=== PATIENT | female | born 1990 | race Caucasian/White ===

== ENCOUNTER 2018-03-31 10:54 | Emergency (ER) | payer OTHER, SELFPAY ==
[2018-03-31 13:20] LABS: Urine Amorphous Sediment 1+ /HPF (NONE SEEN); Urine Bacteria 20-50 /HPF (<20); Urine Culture Reflex Order REFLEXED
[2018-03-31 13:21] LABS: Urine Blood 2+ (NEG); Urine Glucose NEGATIVE (NEG); Urine Protein NEGATIVE (NEG); Urine Specific Gravity >1.030 (1.005-1.030)
--- NOTE | 2018-03-31 14:05 | RAD REPORT ---
EXAM DESCRIPTION: CT - Stone Protocol - 03/31/2018 1:55 pm CLINICAL HISTORY: Flank pain. Flank pain;Hematuria COMPARISON: No comparisons TECHNIQUE: Axial images were obtained without oral or IV contrast. Lack of contrast limits solid org an and vascular assessment. The [id number] spans the entirety of the system partially obscuring uppermost abdomen and lung bases. Coronal reformatted images were obtained and reviewed. All CT scans are performed using dose optimization technique as appropriate and may include automated exposure control or mA/KV adjustment according to patient size. FINDINGS: The lower lung julian are clear. Imaged portions of the liver and spleen show no suspicious findings on non-contrast imaging. The panc reas and adrenal glands are normal. No pathologic lymphadenopathy in the abdomen or pelvis. No urinary tract stones or obstructive uropathy. No bowel obstruction, free air, free fluid or abscess. Normal appendix noted. No significant bony abnormality. IUD noted. IMPRESSION: No urinary tract stones or obstructive uropathy.
[2018-03-31 14:33] LABS: Absolute Lymphocytes (CBC) 2.5 K/uL (0.7-4.9); Absolute Monocytes 0.5 K/uL (0.1-1.3); Absolute Neutrophil 4.3 K/uL (1.8-8.0); Basophils % 0.9 % (0-1.3); Eosinophils % 2.2 % (0-4.4); Hematocrit 41.2 % (36.0-45.0); Lymphocytes % 33.4 % (15.3-44.8); MCH 31.4 pg (27.0-35.0); MCV 91.4 fL (80-100); MPV 8.6 fL (7.6-11.3); Monocytes % 6.2 % (3.3-12.3); RBC Red Blood Cell Count 4.51 M/uL (3.86-4.86)
[2018-03-31 14:39] LABS: Potassium 4.1 mmol/L (3.5-5.1)
[2018-03-31] MEDS ORDERED: NITROFURAN MACRO 100 MG CAP PO ONE (15:09)
--- NOTE | 2018-03-31 15:13 | EDPHYS ---
Physician Documentation [facility] Name: Krista Aguiar Age: 27 yrs Sex: Female : 1990 Arrival Date: 03/31/2018 Time: 10:58 Bed 23 Private MD: None, None ED Physician Adrienne Carpenter HPI: 03/31 13:53 This 27 yrs old Female presents to ER via Ambulatory with complaints of Back kb Pain. 13:53 The patient complains of pain in the right flank. The pain does not radiate. Onset: The kb symptoms/episode began/occurred 1 week(s) ago. Modifying factors: The symptoms are alleviated by nothing. the symptoms are aggravated by movement, palpation/percussion. Associated signs and symptoms: Pertinent positives: hematuria, Pertinent negatives: diarrhea, dizziness, dysuria, fever, urinary frequency, headache, hematuria, pain radiating to the lower extremities, vomiting. Severity of pain: At its worst the pain was moderate in the emergency department the pain is unchanged. The patient has not experienced similar symptoms in the past. The patient has not recently seen a physician. 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 - Social history:: Smoking status: Patient/guardian denies using tobacco, Patient/guardian denies using alcohol. - Ebola Screening: : Patient negative for fever greater than or equal to 101.5 degrees Fahrenheit, and additional compatible Ebola Virus Disease symptoms Patient denies exposure to infectious person Patient denies travel to an Ebola-affected area in the 21 days before illness onset. ROS: 13:52 Constitutional: Negative for fever, chills, and weight loss, Cardiovascular: Negative kb for chest pain, palpitations, and edema, Respiratory: Negative for shortness of breath, cough, wheezing, and pleuritic chest pain, Abdomen/GI: Negative for abdominal pain, nausea, vomiting, diarrhea, and constipation, MS/Extremity: Negative for injury and deformity, Skin: Negative for injury, rash, and discoloration, Neuro: Negative for headache, weakness, numbness, tingling, and seizure. 13:52 : Positive for urinary symptoms, flank pain, hematuria. Exam: 13:52 Constitutional: This is a well developed, well nourished patient who is awake, alert, kb and in no acute distress. Head/Face: Normocephalic, atraumatic. Chest/axilla: Normal chest wall appearance and motion. Nontender with no deformity. No lesions are appreciated. Cardiovascular: Regular rate and rhythm with a normal S1 and S2. No gallops, murmurs, or rubs. Normal PMI, no JVD. No pulse deficits. Respiratory: Lungs have equal breath sounds bilaterally, clear to auscultation and percussion. No rales, rhonchi or wheezes noted. No increased work of breathing, no retractions or nasal flaring. Abdomen/GI: Soft, non-tender, with normal bowel sounds. No distension or tympany. No guarding or rebound. No evidence of tenderness throughout. Skin: Warm, dry with normal turgor. Normal color with no rashes, no lesions, and no evidence of cellulitis. MS/ Extremity: Pulses equal, no cyanosis. Neurovascular intact. Full, normal range of motion. Neuro: Awake and alert, GCS 15, oriented to person, place, time, and situation. Cranial nerves II-XII grossly intact. Motor strength 5/5 in all extremities. Sensory grossly intact. Cerebellar exam normal. Normal gait. 13:52 Back: pain, that is mild, that is moderate, of the right flank, CVA tenderness, that is mild, is noted on the right. Vital Signs: 11:18 BP 128 / 80; Pulse 72; Resp 18; Temp 98.8(O); Pulse Ox 100% on R/A; Weight 117.93 kg; Height 5 ft. 7 in. (170.18 cm); Pain 7/10; 14:26 BP 120 / 75; Pulse 66; Resp 18; Pulse Ox 100% on R/A; tl3 11:18 Body Mass Index 40.72 (117.93 kg, 170.18 cm) MDM: 12:51 Patient medically screened. kb 13:53 Data reviewed: vital signs, nurses notes. Data interpreted: Pulse oximetry: on room air kb is 100 %. Interpretation: normal. 14:49 Counseling: I had a detailed discussion with the patient and/or guardian regarding: the kb historical points, exam findings, and any diagnostic results supporting the discharge/admit diagnosis, lab results, radiology results, the need for outpatient follow up, a family practitioner, to return to the emergency department if symptoms worsen or persist or if there are any questions or concerns that arise at home. 03/31 12:03 Order name: Urine Microscopic Only; Complete Time: 13:25 kb 03/31 13:10 Order name: Urine Dipstick--Ancillary (enter results); Complete Time: 13:25 bd 03/31 13:10 Order name: Urine --Ancillary (enter results); Complete Time: 13:25 bd 03/31 13:22 Order name: Urine Culture EDMS 03/31 13:25 Order name: CBC with Diff; Complete Time: 14:47 kb 03/31 13:25 Order name: Basic Metabolic Panel; Complete Time: 14:40 kb 03/31 12:03 Order name: Urine Test (obtain specimen); Complete Time: 13:05 kb 03/31 12:03 Order name: Urine Dipstick-Ancillary (obtain specimen); Complete Time: 13:05 kb 03/31 13:25 Order name: IV Start; Complete Time: 14:26 kb 03/31 13:25 Order name: CT Stone Protocol; Complete Time: 14:29 kb Administered Medications: 15:03 Drug: Macrobid 100 mg Route: PO; tl3 15:09 Follow up: Response: Medication administered at discharge. tl3 Disposition: 04/01 10:40 Co-signature as Attending Physician, Adrienne Carpenter MD. ma2 Disposition: 03/31/18 14:51 Discharged to Home. Impression: Urinary tract infection, site not specified. - Condition is Stable. - Discharge Instructions: Urinary Tract Infection, Adult, [id number]. - Prescriptions for Macrobid 100 mg Oral Capsule - take 1 capsule by ORAL route every 12 hours for 7 days; 14 capsule. - Medication Reconciliation Form, Thank You Letter, Antibiotic Education, Prescription Opioid Use form. - Follow up: Emergency Department; When: As needed; Reason: Worsening of condition. Follow up: Private Physician; When: 2 - 3 days; Reason: Recheck today's complaints, Continuance of care, Re-evaluation by your physician. Signatures: Dispatcher [employer] EDZahira Kessler FNP-C FNP-Ckb Joaquin, Pipe, RN RN hj Adrienne Carpenter MD MD ma2 Livier Ayala, FLORENCE RN tl3 Corrections: (The following items were deleted from the chart) 03/31 13:53 13:52 Back: pain, that is moderate, of the right flank, CVA tenderness, that is kb moderate, is noted on the right, kb 15:11 14:51 03/31/2018 14:51 Discharged to Home. Impression: Urinary tract infection, site tl3 not specified. Condition is Stable. Forms are Medication Reconciliation Form, Thank You Letter, Antibiotic Education, Prescription Opioid Use. Follow up: Emergency Department; When: As needed; Reason: Worsening of condition. Follow up: Private Physician; When: 2 - 3 days; Reason: Recheck today's complaints, Continuance of care, Re-evaluation by your physician. kb
--- NOTE | 2018-03-31 15:13 | ER ---
Nurse's Notes [facility] Name: Krista Aguiar Age: 27 yrs Sex: Female : 1990 Arrival Date: 03/31/2018 Time: 10:58 Bed 23 Private MD: None, None Diagnosis: Urinary tract infection, site not specified Presentation: 03/31 11:16 Presenting complaint: Patient states: i started having R lower back pain for a week now hj and noticed blood in my urine for 2 weeks now; denies fever and chills; denies hx of kidney stones;. Transition of care: patient was not received from another setting of care. Onset of symptoms was March 31, 2018. Risk Assessment: Do you want to hurt yourself or someone else? Patient reports no desire to harm self or others. Initial Sepsis Screen: Does the patient meet any 2 criteria? No. Patient's initial sepsis screen is negative. Does the patient have a suspected source of infection? No. Patient's initial sepsis screen is negative. Care prior to arrival: None. 11:16 Method Of Arrival: Ambulatory 11:16 Acuity: ZHANE 3 Triage Assessment: 11:18 General: Appears in no apparent distress. uncomfortable, Behavior is calm, cooperative, hj appropriate for age. Pain: Complains of pain in back Pain currently is 7 out of 10 on a pain scale. Musculoskeletal: Circulation, motion, and sensation intact. Capillary refill. 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 - Social history:: Smoking status: Patient/guardian denies using tobacco, Patient/guardian denies using alcohol. - Ebola Screening: : Patient negative for fever greater than or equal to 101.5 degrees Fahrenheit, and additional compatible Ebola Virus Disease symptoms Patient denies exposure to infectious person Patient denies travel to an Ebola-affected area in the 21 days before illness onset. Screenin:18 Abuse screen: Denies threats or abuse. Denies injuries from another. Nutritional hj screening: No deficits noted. Tuberculosis screening: No symptoms or risk factors identified. Fall Risk None identified. Assessment: 13:00 General: Appears in no apparent distress. well groomed, well developed, well nourished, tl3 Behavior is calm, cooperative, appropriate for age. Pain: Complains of pain in right flank. Neuro: No deficits noted. Level of Consciousness is awake, alert, obeys commands, Oriented to person, place, time, situation, Appropriate for age. Cardiovascular: Patient's skin is warm and dry. Respiratory: Airway is patent Respiratory effort is even, unlabored, Respiratory pattern is regular, symmetrical. GI: No signs and/or symptoms were reported involving the gastrointestinal system. : No signs and/or symptoms were reported regarding the genitourinary system. : Reports blood in urine. EENT: No signs and/or symptoms were reported regarding the EENT system. Derm: No signs and/or symptoms reported regarding the dermatologic system. Musculoskeletal: No signs and/or symptoms reported regarding the musculoskeletal system. 15:10 Reassessment: Patient appears in no apparent distress at this time. No changes from tl3 previously documented assessment. Patient and/or family updated on plan of care and expected duration. Pain level reassessed. Patient is alert, oriented x 3, equal unlabored respirations, skin warm/dry/pink. Vital Signs: 11:18 BP 128 / 80; Pulse 72; Resp 18; Temp 98.8(O); Pulse Ox 100% on R/A; Weight 117.93 kg; hj Height 5 ft. 7 in. (170.18 cm); Pain 7/10; 14:26 BP 120 / 75; Pulse 66; Resp 18; Pulse Ox 100% on R/A; tl3 11:18 Body Mass Index 40.72 (117.93 kg, 170.18 cm) ED Course: 10:58 Patient arrived in ED. mr 10:58 None, None is Private Physician. mr 11:17 Triage completed. hj 11:18 Arm band placed on left wrist. hj 11:19 Patient has correct armband on for positive identification. Placed in gown. Bed in low hj position. Call light in reach. Side rails up X 1. 12:04 Zahira English FNP-C is [facility]. kb 12:04 Adrienne Carpenter MD is Attending Physician. kb 12:57 Livier Ayala RN is Primary Nurse. tl3 13:00 No provider procedures requiring assistance completed. tl3 13:52 CT completed. Patient moved to CT via wheelchair. Patient moved back from CT. cw1 13:55 CT Stone Protocol In Process Unspecified. EDMS 14:26 Initial lab(s) drawn, by me, sent to lab. Inserted saline lock: 20 gauge in right tl3 antecubital area, using aseptic technique. Blood collected. 15:10 IV discontinued, intact, bleeding controlled, No redness/swelling at site. Pressure tl3 dressing applied. Administered Medications: 15:03 Drug: Macrobid 100 mg Route: PO; tl3 15:09 Follow up: Response: Medication administered at discharge. tl3 Outcome: 14:51 Discharge ordered by . kb 15:10 Discharged to home ambulatory. tl3 15:10 Condition: good 15:10 Discharge instructions given to patient, Instructed on discharge instructions, follow up and referral plans. medication usage, Demonstrated understanding of instructions, follow-up care, medications, Prescriptions given X 1. 15:11 Patient left the ED. tl3 Signatures: Dispatcher [employer] EDMS Zahira English, MALKA [employer]ER [employer]OWERHOUSE-Nataly Daigle Leonila Pack cw1 Pipe Miles, RN RN Livier Reed, RN RN tl3 Corrections: (The following items were deleted from the chart) 11:20 11:18 Pulse 72bpm; Resp 18bpm; Pulse Ox 100% RA; Temp 98.8F Oral; 117.93 kg; Height 5 hj ft. 7 in.; BMI: 40.7; Pain 7/10; hj
== END 2018-03-31 15:11 | disposition home or self-care (01) ==
LOC: ER 10:54
DX: N39.0 Urinary tract infection, site not specified (principal)
CPT/HCPCS: 36415; 74176; 76377; 80048; 81003; 81015; 81025; 85025; 87086; 87088; 99284